=== PATIENT | female | born 1990 | race Two or more races ===

== ENCOUNTER 2025-08-08 10:53 | Emergency (ER) | payer MEDICAID, SELFPAY ==
[2025-08-08 11:24] VITALS: BP 125/77; PULSE 63; RESP 16; TEMP 37.2; O2SAT 97; BMI 23.6
--- NOTE | 2025-08-08 12:03 | EDNOTE_ITS ---
<Statement entered by Lauren Johnson MD - 08/30/25 06:18> As co-signing physician, I was present and available for consult prn. I concur with the plan and care as documented by the midlevel provider. ED General RME/HPI General Chief complaint: General Adult/Misc Complain Stated complaint: BLEEDING GUMS Time Seen by Provider: 08/08/25 11:55 Arrival date/time: 08/08/25 10:53 This is a 34-year-old female that comes into the emergency room with complaints of bleeding gums to the right upper jaw. Patient states that she had a teeth cleaning done yesterday and the gums were bleeding since then. Patient states that sometimes it would stop and then if she would eat sometimes it would start up again. Upon arrival to the emergency room gums are no longer bleeding. Related Data Allergies Allergy/AdvReac Type Severity Reaction Status Date / Time No Known Allergies Allergy Verified 08/08/25 10:57 Review of Systems Review of Systems Systems Reviewed: All systems reviewed, normal except as documented Past Medical History Past Medical History Comments PMH COMMENT: Denies ED Exam Narrative Physical exam: VITAL SIGNS: Reviewed. GENERAL APPEARANCE: Alert and interactive, follows commands, no acute distress HEAD AND FACE: Non-traumatic. ENT: PERRL, conjuctiva pink and clear, eyelid no trauma, Mucous membrane moist. NECK: Supple, nontender, no nuchal rigidity. CHEST: No tenderness, no crepitus, no paradoxical movement, no retractions. LUNGS: breathing even and unlabored HEART: Regular rate, cap refill less than 2 seconds ABDOMEN: Soft, nondistended, no guarding, nontender, no rebound, no masses, NEUROLOGICAL: Gross motor function intact sensory function intact, Appropriate for age. MUSCULOSKELETAL: low back nontender, full range of motion. EXTREMITIES: No redness no swelling no skin breakdown on bilateral foot and leg. Distal neurovascular status intact bilateral foot SKIN: Color pink, dry, no rash, no lacerations, no abrasions, no contusions. Course Quality Measures none Vital Signs Vital signs: Vital Signs Temperature 99.0 F 08/08/25 11:24 Pulse Rate 63 08/08/25 11:24 Respiratory Rate 16 08/08/25 11:24 Blood Pressure 125/77 08/08/25 11:24 Pulse Oximetry (%) 97 08/08/25 11:24 Oxygen Delivery Method Room Air 08/08/25 11:24 Discharge Plan Plan Patient Disposition: HOME (Self Care) Patient condition on transfer: Stable Problem List Clinical Impression: Bleeding gums Patient/Caregiver Discharge Instructions Discharge Activity: activity as tolerated Education Materials: Understanding Healthy Teeth ... Additional Instructions: This Sandee un crescencio con thorpe medico de cabecera en las proximas 24-48 horas. Regrese a la beronica de emergencias si hay evidencia de que los signos o sintomas empeoran. Print Language: Green[place]ic Stand Alone Forms: Ida Award Info., Patient Portal Info Letter PA/GARAGE DOOR SERVICE TECHNICIAN Supervising Physician PA/GARAGE DOOR SERVICE TECHNICIAN Supervising Physician: erasmo FOX Narrative MDM hospital course (for use when minimal MDM required): I assessed throughout mouth along with gums were assessed and I saw absolutely no laceration no areas where it appeared that patient was bleeding. Patient states the last time it started bleeding this morning she put direct pressure for a couple minutes and it stopped. Patient came to the emergency room to make sure it was not going to continue. Patient states gums have not been bleeding now that she held pressure. No open wounds no cuts inside the mouth. Patient told to follow-up with primary provider in 1 to 2 days. [place] to emergency room symptoms change or worsen. I did tell patient that if it happens again to do direct pressure again for 20 minutes and if not to come back to the emergency room. I also told patient to eat soft foods to not irritate the mouth today. Patient feels comfortable plan of care. Dragon dictation: Although this document has been carefully reviewed, there may still be some phonetic and other typographical errors. These errors are purely grammatical due to imperfections in the software program and should not be construed in any way to compromise the substance of the patient's medical care during this visit. Clinical Information Provided by: patient Medical Records reviewed [facility] Meds/Rx considered, not ordered None Labs/Rad/Tests considered, not ordered None Chronic Illness/Social Conditions which may negatively complicate care or outcome(s)-explain: None or not applicable Imaging Imaging interpretation: none Medication Administration(s) none
== END 2025-08-08 12:23 | disposition home or self-care (01) ==
LOC: SERX 12:19
PROVIDERS: Emergency Provider Emergency Medicine; PCP Family Medicine
DX: K06.8 Other specified disorders of gingiva and edentulous alveolar ridge (principal)
CPT/HCPCS: 99281